=== PATIENT | female | born 1935 | race Caucasian/White ===

== ENCOUNTER 2017-02-14 17:19 | Emergency (ER) | payer OTHER ==
[~2017-02-14 17:19] MED LIST: ADV200 PO; AFRNS; ALENDRONATE SOD70 M2 PO; ALPRAZOLAM0.25 MG PO; AMLODIPINE BES2.5 M1 PO; AMLODIPINE BESYL5 MG PO; ASPIR 8181 MG PO; ATI0.5 PO; CARAFATE1 GM PO; CARVEDILOL12.5 M1 PO; CARVEDILOL12.5 MG PO; CAT0.1 PO; CEPACOL SORE TH1 LO4 MM; CLONIDINE HCL0.1 MG PO; CLONIDINE0.1 M1; COL100 PO; COLACE100 MG PO; COR3; COR3 PO; COR6 PO; CREON1 EC1 PO; DIO80 PO; DIOVAN160 MG PO; DOC-Q-LAX 50 MG1 TAB PO; DONNATAL1 CAP PO; ECO81 PO; ESCITALOPRAM PO; ESG PO; FER300 PO; FIO3 PO; GABAPENTIN100 M2 PO; GEMFIBROZIL600 PO; GUAIFENESIN AN118 ML PO; HYD25 PO; HYDROCHLOROTHIA PO; IBUPROFEN400 MG PO; IBUPROFEN600 MG PO; KEFLEX250 MG PO; LAC PO; LAC30L PO; LEVAQUIN750 MG PO; LIPI10 PO; LIPI20 PO; LOM PO; LOPERAMIDE HCL2 MG PO; MAPAP325 MG PO; MEDDP PO; METFORMIN ER500 M1 PO; METFORMIN500 M1 PO; MICARDIS HCT 251 TAB PO; MUCINEX600 MG PO; NAPROSYN375 MG PO; NITROSTAT0.4 MG SL; NOR5 PO; NORCO1 TA2 PO; OMEPRAZOLE D/R20 MG PO; OMEPRAZOLE DR20 M1 PO; ONDANSETRON4 M3 PO; PRI20 PO; PROTONIX TR40 M1 PO; RANITIDINE HCL150 M1 PO; RANITIDINE150 M1 PO; TESSALON PERLE100 MG PO; TRAMADOL50 MG PO; TRE400 PO; TYLENOL EXTRA500 M2 PO; VITAMIN D1000 I1 PO; VITAMIN D32000 I2 PO; VITC PO; XANAX0.25 MG PO; Z PO; ZES20 PO; ZOC10 PO
[2017-02-14 18:31] LABS: BASOPHIL % 0.7 % (0-2)
[2017-02-14 18:32] LABS: PLATELET COUNT 275 x10^3mcL (130-400); RED CELL DISTRIBUTION WIDTH 15.8 % (11.5-14.5)
[2017-02-14 18:39] LABS: CARBON DIOXIDE 31.4 mmol/L (21-32); CHLORIDE SERUM 96 mmol/L (98-107); CREATININE SERUM 1.8 mg/dL (0.6-1.0); GLUCOSE SERUM 131 mg/dL (74-106); POTASSIUM SERUM 3.9 mmol/L (3.5-5.1); SODIUM SERUM 136 mmol/L (136-145)
[2017-02-14 18:43] LABS: ALBUMIN 3.7 g/dL (3.4-5.0); ALKALINE PHOSPHATASE 116 U/L (46-116); ALT/SGPT 39 U/L (14-59); AMYLASE 69 U/L (25-115); AST/SGOT 39 U/L (15-37); BILIRUBIN TOTAL 0.3 mg/dL (0.20-1.00); LIPASE 131 IU/L (73-393); TOTAL PROTEIN, SERUM 7.8 g/dL (6.4-8.2)
[2017-02-14 20:42] VITALS: BP 146/68
== END 2017-02-14 20:35 | disposition home or self-care (01) ==
LOC: ED 17:19
PROVIDERS: Emergency Medicine
DX: R10.9 Unspecified abdominal pain (principal); E78.00 Pure hypercholesterolemia, unspecified; G43.909 Migraine, unspecified, not intractable, without status migrainosus; I10 Essential (primary) hypertension; E11.9 Type 2 diabetes mellitus without complications
CPT/HCPCS: 83880; J2405; J3490; Q0092

== ENCOUNTER 2017-03-18 00:43 | Emergency (ER) | payer OTHER ==
[2017-03-18 01:53] LABS: PLATELET COUNT 342 x10^3mcL (130-400)
[2017-03-18 01:54] LABS: BASOPHIL % 3.1 % (0-2); RED CELL DISTRIBUTION WIDTH 15.1 % (11.5-14.5)
[2017-03-18 02:05] LABS: CALCIUM 8.5 mg/dL (8.5-10.1); CARBON DIOXIDE 27.1 mmol/L (21-32); CHLORIDE SERUM 93 mmol/L (98-107); CREATININE SERUM 1.8 mg/dL (0.6-1.0); GLUCOSE SERUM 102 mg/dL (74-106); POTASSIUM SERUM 3.5 mmol/L (3.5-5.1); SODIUM SERUM 135 mmol/L (136-145)
[2017-03-18 02:09] LABS: ALBUMIN 3.8 g/dL (3.4-5.0); ALKALINE PHOSPHATASE 90 U/L (46-116); ALT/SGPT 21 U/L (14-59); AST/SGOT 30 U/L (15-37); BILIRUBIN TOTAL 0.51 mg/dL (0.20-1.00); LIPASE 188 IU/L (73-393); TOTAL PROTEIN, SERUM 7.6 g/dL (6.4-8.2)
[2017-03-18 03:16] LABS: microscopic required? YES; urine erythrocyte 1+ (NEGATIVE)
[2017-03-18 04:24] VITALS: BP 165/78
== END 2017-03-18 04:24 | disposition home or self-care (01) ==
LOC: ED 00:43
PROVIDERS: Emergency Medicine
DX: R11.2 Nausea with vomiting, unspecified (principal); R19.7 Diarrhea, unspecified; Z79.84 Long term (current) use of oral hypoglycemic drugs; N28.9 Disorder of kidney and ureter, unspecified; E86.0 Dehydration; K21.9 Gastro-esophageal reflux disease without esophagitis; I25.10 Atherosclerotic heart disease of native coronary artery without angina pectoris; E11.9 Type 2 diabetes mellitus without complications; I10 Essential (primary) hypertension; G43.909 Migraine, unspecified, not intractable, without status migrainosus; E78.5 Hyperlipidemia, unspecified; K42.9 Umbilical hernia without obstruction or gangrene; Z87.11 Personal history of peptic ulcer disease
CPT/HCPCS: 83880; C9113; J2405; J7030; Q0092

== ENCOUNTER 2017-04-27 15:10 | Emergency (ER) | payer OTHER ==
[2017-04-27 15:46] LABS: BASOPHIL % 0.4 % (0-2); PLATELET COUNT 361 x10^3mcL (130-400)
[2017-04-27 15:51] LABS: CALCIUM 8.5 mg/dL (8.5-10.1); CARBON DIOXIDE 29.6 mmol/L (21-32); CHLORIDE SERUM 100 mmol/L (98-107); CREATININE SERUM 1.5 mg/dL (0.6-1.0); GLUCOSE SERUM 136 mg/dL (74-106); POTASSIUM SERUM 3.6 mmol/L (3.5-5.1); SODIUM SERUM 139 mmol/L (136-145)
[2017-04-27 15:55] LABS: ALBUMIN 3.6 g/dL (3.4-5.0); ALKALINE PHOSPHATASE 105 U/L (46-116); ALT/SGPT 26 U/L (14-59); AMYLASE 81 U/L (25-115); AST/SGOT 34 U/L (15-37); BILIRUBIN TOTAL 0.4 mg/dL (0.20-1.00); LIPASE 180 IU/L (73-393); TOTAL PROTEIN, SERUM 7.8 g/dL (6.4-8.2)
[2017-04-27 20:22] VITALS: BP 160/74
== END 2017-04-27 20:22 | disposition home or self-care (01) ==
LOC: ED 15:10
DX: E86.0 Dehydration (principal); I10 Essential (primary) hypertension; E11.9 Type 2 diabetes mellitus without complications; F99 Mental disorder, not otherwise specified; F41.9 Anxiety disorder, unspecified; E78.00 Pure hypercholesterolemia, unspecified; I25.2 Old myocardial infarction; G43.909 Migraine, unspecified, not intractable, without status migrainosus; N17.9 Acute kidney failure, unspecified; R19.7 Diarrhea, unspecified; R11.10 Vomiting, unspecified; Z79.899 Other long term (current) drug therapy; Z79.84 Long term (current) use of oral hypoglycemic drugs; Z88.1 Allergy status to other antibiotic agents; Z79.82 Long term (current) use of aspirin
CPT/HCPCS: 83880; J2405; J7030; J7040

== ENCOUNTER 2017-09-18 21:37 | Inpatient (IN) | payer OTHER ==
[~2017-09-18] VITALS: Ht 152.4 cm; Wt 65.0 kg
[2017-09-18 22:16] VITALS: Ht 152.4 cm; Wt 65.0 kg
[2017-09-18 23:33] LABS: BASOPHIL % 0.6 % (0-2); PLATELET COUNT 284 x10^3mcL (130-400); RED CELL DISTRIBUTION WIDTH 13.4 % (11.5-14.5)
[2017-09-18 23:48] LABS: ALKALINE PHOSPHATASE 86 U/L (46-116); ALT/SGPT 24 U/L (14-59); AMYLASE 64 U/L (25-115); AST/SGOT 22 U/L (15-37); BILIRUBIN TOTAL 0.2 mg/dL (0.20-1.00); CALCIUM 8.6 mg/dL (8.5-10.1); CARBON DIOXIDE 32.3 mmol/L (21-32); CHLORIDE SERUM 96 mmol/L (98-107); GLUCOSE SERUM 115 mg/dL (74-106); LIPASE 133 IU/L (73-393); POTASSIUM SERUM 3.7 mmol/L (3.5-5.1); SODIUM SERUM 135 mmol/L (136-145); TOTAL PROTEIN, SERUM 6.8 g/dL (6.4-8.2)
[2017-09-18 23:51] LABS: ALBUMIN 3.1 g/dL (3.4-5.0)
[2017-09-19] VITALS (7 sets, daily range): BP systolic 169–196; BP diastolic 56–70
[2017-09-19 01:23] LABS: microscopic required? YES; urine erythrocyte 1+ (NEGATIVE)
[2017-09-19] MEDS ORDERED: DIOVAN320 MG (02:22)
[2017-09-19] MEDS ORDERED: GOOD NEIGHBOR P20 M2 (02:23)
[2017-09-19] MEDS ORDERED: LASIX20 MG (02:23)
[2017-09-19] MEDS ORDERED: LAC (02:23)
[2017-09-19] MEDS ORDERED: GOOD SENSE OMEP20 MG (02:23)
[2017-09-19 06:54] LABS: T3 TOTAL 0.96 ng/mL
[2017-09-19 06:57] LABS: HDL CHOLESTEROL 44 mg/dL (40-60); MAGNESIUM 1.7 mg/dL (1.8-2.4); PHOSPHOROUS 4.4 mg/dL (2.5-4.9)
[2017-09-19 06:59] LABS: FREE T4 1.35 ng/dL (0.76-1.46); FREE THYROXINE INDEX 3.2 ug/dL (1.4-4.5); T4(THYROXINE) 7.9 ug/dL (4.7-13.3)
[2017-09-19 07:00] LABS: TRIGLYCERIDES 550 mg/dL (<150)
[2017-09-19 07:41] LABS: CHOLESTEROL 249 mg/dL (<200); CHOLESTEROL/HDL RATIO 5.7
[2017-09-19 07:42] LABS: BASOPHIL % 0.7 % (0-2); PLATELET COUNT 256 x10^3mcL (130-400); RED CELL DISTRIBUTION WIDTH 13.6 % (11.5-14.5)
[2017-09-19 08:08] LABS: CALCIUM 8.3 mg/dL (8.5-10.1); CARBON DIOXIDE 29.1 mmol/L (21-32); CHLORIDE SERUM 99 mmol/L (98-107); CREATININE SERUM 1.9 mg/dL (0.6-1.0); GLUCOSE SERUM 107 mg/dL (74-106); MAGNESIUM 1.5 mg/dL (1.8-2.4); PHOSPHOROUS 4.7 mg/dL (2.5-4.9); POTASSIUM SERUM 3.4 mmol/L (3.5-5.1); SODIUM SERUM 138 mmol/L (136-145)
[2017-09-20] VITALS (7 sets, daily range): BP systolic 145–191; BP diastolic 48–78
[2017-09-20 06:25] LABS: BASOPHIL % 0.8 % (0-2); PLATELET COUNT 254 x10^3mcL (130-400); RED CELL DISTRIBUTION WIDTH 13.4 % (11.5-14.5)
[2017-09-20 06:54] LABS: CALCIUM 8.6 mg/dL (8.5-10.1); CARBON DIOXIDE 28.4 mmol/L (21-32); CHLORIDE SERUM 104 mmol/L (98-107); CREATININE SERUM 1.5 mg/dL (0.6-1.0); GLUCOSE SERUM 126 mg/dL (74-106); PHOSPHOROUS 3.8 mg/dL (2.5-4.9); POTASSIUM SERUM 3.7 mmol/L (3.5-5.1); SODIUM SERUM 140 mmol/L (136-145)
[2017-09-21 05:53] VITALS: BP 133/67
[2017-09-21 09:10] VITALS: BP 133/67
[2017-09-21 09:49] VITALS: BP 141/68; BP 194/70
[2017-09-21] MEDS ORDERED: CLONIDINE HYDR0.3 M1 PO (10:21)
[2017-09-21] MEDS ORDERED: CARVEDILOL25 M1 PO (10:22)
[2017-09-21] MEDS ORDERED: LASIX20 MG PO (10:23)
[2017-09-21] MEDS ORDERED: GOOD NEIGHBOR P20 M2 PO (10:24)
[2017-09-21] MEDS ORDERED: LIPI10 PO (10:24)
[2017-09-21] MEDS ORDERED: I5 PO (10:25)
[2017-09-21 11:15] LABS: BASOPHIL % 0.4 % (0-2); PLATELET COUNT 236 x10^3mcL (130-400); RED CELL DISTRIBUTION WIDTH 13.1 % (11.5-14.5)
[2017-09-21 11:31] LABS: CALCIUM 8.3 mg/dL (8.5-10.1); CARBON DIOXIDE 30.1 mmol/L (21-32); CHLORIDE SERUM 103 mmol/L (98-107); CREATININE SERUM 1.5 mg/dL (0.6-1.0); GLUCOSE SERUM 144 mg/dL (74-106); MAGNESIUM 2.1 mg/dL (1.8-2.4); POTASSIUM SERUM 3.5 mmol/L (3.5-5.1); SODIUM SERUM 141 mmol/L (136-145)
== END 2017-09-21 13:40 | disposition home or self-care (01) | DRG 391 ==
LOC: ED 21:37 → DU 09-19 01:54 → MU 09-19 01:54 → DU 09-19 03:21 → MU 09-20 09:41
PROVIDERS: Emergency Medicine; Family Medicine
DX: K21.9 Gastro-esophageal reflux disease without esophagitis (principal); N17.0 Acute kidney failure with tubular necrosis; E87.1 Hypo-osmolality and hyponatremia; E44.0 Moderate protein-calorie malnutrition; K26.9 Duodenal ulcer, unspecified as acute or chronic, without hemorrhage or perforation; I12.9 Hypertensive chronic kidney disease with stage 1 through stage 4 chronic kidney disease, or unspecified chronic kidney disease; E11.22 Type 2 diabetes mellitus with diabetic chronic kidney disease; N18.9 Chronic kidney disease, unspecified; R31.29 Other microscopic hematuria; I16.0 Hypertensive urgency; E11.51 Type 2 diabetes mellitus with diabetic peripheral angiopathy without gangrene; E11.42 Type 2 diabetes mellitus with diabetic polyneuropathy; D63.8 Anemia in other chronic diseases classified elsewhere; E78.5 Hyperlipidemia, unspecified; Z68.28 Body mass index [BMI] 28.0-28.9, adult; Z79.84 Long term (current) use of oral hypoglycemic drugs
CPT/HCPCS: 82962; 83880; 84439; J3475; J3490; J7030; J7050; Q0092

== ENCOUNTER 2018-02-14 11:20 | Emergency (ER) | payer OTHER ==
[~2018-02-14] VITALS: Ht 149.9 cm; Wt 59.1 kg
[~2018-02-14 11:20] MED LIST changes: +CARVEDILOL25 M1 PO; +CLONIDINE HYDR0.3 M1 PO; +DIOVAN320 MG; +GOOD NEIGHBOR P20 M2; +GOOD NEIGHBOR P20 M2 PO; +GOOD SENSE OMEP20 MG; +I5 PO; +LAC; +LASIX20 MG; +LASIX20 MG PO
[2018-02-14 11:27] VITALS: BP 162/80; Ht 149.9 cm; Wt 59.1 kg
[2018-02-14] MEDS ORDERED: CARAFATE1 GM PO (11:35)
[2018-02-14] MEDS ORDERED: FUROSEMIDE20 MG PO (11:35)
[2018-02-14] MEDS ORDERED: CARVEDILOL6.25 M1 PO (11:36)
[2018-02-14] MEDS ORDERED: NOR10 PO (11:36)
[2018-02-14] MEDS ORDERED: CATAPRES0.1 MG PO (11:36)
[2018-02-14] MEDS ORDERED: ASPIR 8181 MG PO (11:36)
[2018-02-14] MEDS ORDERED: TOPCARE LAXATIVE5 MG PO (11:37)
[2018-02-14] MEDS ORDERED: DRISDOL50000 IU PO (11:38)
[2018-02-14] MEDS ORDERED: ZANTAC 150150 MG PO (11:38)
[2018-02-14] MEDS ORDERED: GABAPENTIN100 M2 PO (11:39)
[2018-02-14] MEDS ORDERED: APAP500 MG PO (11:39)
[2018-02-14] MEDS ORDERED: LOVASTATIN20 MG PO (11:39)
[2018-02-14] MEDS ORDERED: METFORMIN HCL500 MG PO (11:40)
[2018-02-14] MEDS ORDERED: FERROUS SULFAT325 M2 PO (11:40)
[2018-02-14] MEDS ORDERED: VITAMIN B121000 MCG PO (11:40)
[2018-02-14] MEDS ORDERED: DIOVAN320 MG PO (11:40)
== END 2018-02-14 13:04 | disposition home or self-care (01) ==
LOC: ED 11:20
DX: J18.0 Bronchopneumonia, unspecified organism (principal); I10 Essential (primary) hypertension; E78.00 Pure hypercholesterolemia, unspecified; E11.9 Type 2 diabetes mellitus without complications; G43.909 Migraine, unspecified, not intractable, without status migrainosus

== ENCOUNTER 2018-12-22 00:01 | Emergency (ER) | payer OTHER ==
[~2018-12-22] VITALS: Ht 152.4 cm; Wt 56.2 kg
[~2018-12-22 00:01] MED LIST changes: +APAP500 MG PO; +CARVEDILOL6.25 M1 PO; +CATAPRES0.1 MG PO; +DIOVAN320 MG PO; +DRISDOL50000 IU PO; +FERROUS SULFAT325 M2 PO; +FUROSEMIDE20 MG PO; +LOVASTATIN20 MG PO; +METFORMIN HCL500 MG PO; +NOR10 PO; +TOPCARE LAXATIVE5 MG PO; +VITAMIN B121000 MCG PO; +ZANTAC 150150 MG PO
[2018-12-22 00:05] VITALS: Ht 152.4 cm; Wt 56.2 kg
[2018-12-22 02:12] VITALS: BP 175/74
== END 2018-12-22 02:12 | disposition home or self-care (01) ==
LOC: ED 00:01
DX: J18.0 Bronchopneumonia, unspecified organism (principal); I10 Essential (primary) hypertension; E11.9 Type 2 diabetes mellitus without complications; F41.9 Anxiety disorder, unspecified; E78.00 Pure hypercholesterolemia, unspecified; G43.909 Migraine, unspecified, not intractable, without status migrainosus; Z98.890 Other specified postprocedural states
CPT/HCPCS: J0696

== ENCOUNTER 2018-12-26 16:46 | Inpatient (IN) | payer OTHER ==
[~2018-12-26] VITALS: Ht 152.4 cm; Wt 56.7 kg
[2018-12-26 16:52] VITALS: Ht 152.4 cm; Wt 56.7 kg
[2018-12-26 18:28] LABS: BASOPHIL % 0.4 % (0-2); PLATELET COUNT 378 x10^3mcL (130-400); RED CELL DISTRIBUTION WIDTH 13.2 % (11.5-14.5)
[2018-12-26 18:38] LABS: CALCIUM 8.8 mg/dL (8.5-10.1); CARBON DIOXIDE 28.4 mmol/L (21-32); CHLORIDE SERUM 94 mmol/L (98-107); CREATININE SERUM 1.8 mg/dL (0.6-1.0); GLUCOSE SERUM 145 mg/dL (74-106); POTASSIUM SERUM 3.5 mmol/L (3.5-5.1); SODIUM SERUM 129 mmol/L (136-145)
[2018-12-26 18:43] LABS: ALBUMIN 3.3 g/dL (3.4-5.0); ALKALINE PHOSPHATASE 70 U/L (46-116); ALT/SGPT 23 U/L (14-59); AST/SGOT 30 U/L (15-37); TOTAL PROTEIN, SERUM 7.5 g/dL (6.4-8.2)
[2018-12-26 23:56] VITALS: BP 152/60
[2018-12-27 00:08] LABS: CHOLESTEROL/HDL RATIO 3.9; PHOSPHOROUS 3.9 mg/dL (2.5-4.9)
[2018-12-27 00:16] LABS: FREE T4 1.01 ng/dL (0.76-1.46); FREE THYROXINE INDEX 2.9 ug/dL (1.4-4.5); T4(THYROXINE) 8.5 ug/dL (4.7-13.3)
[2018-12-27 00:46] LABS: T3 TOTAL 0.71 ng/mL
[2018-12-27 04:57] LABS: BASOPHIL % 0.8 % (0-2); PLATELET COUNT 356 x10^3mcL (130-400); RED CELL DISTRIBUTION WIDTH 13.2 % (11.5-14.5)
[2018-12-27 05:02] LABS: CALCIUM 8.5 mg/dL (8.5-10.1); CARBON DIOXIDE 26.8 mmol/L (21-32); CHLORIDE SERUM 98 mmol/L (98-107); CREATININE SERUM 1.7 mg/dL (0.6-1.0); GLUCOSE SERUM 109 mg/dL (74-106); POTASSIUM SERUM 3.5 mmol/L (3.5-5.1); SODIUM SERUM 133 mmol/L (136-145)
[2018-12-27 05:37] VITALS: BP 124/49
[2018-12-27 08:46] VITALS: BP 143/45
[2018-12-27 09:00] LABS: UA SPECIFIC GRAVITY <=1.005 (1.005-1.035); microscopic required? YES
[2018-12-27 09:02] LABS: urine erythrocyte TRACE (NEGATIVE)
[2018-12-27 09:54] LABS: AMPHETAMINE QUAL UR NONE DETECTED (See below)
[2018-12-27 12:43] VITALS: BP 146/53
[2018-12-27 16:52] VITALS: BP 154/45
[2018-12-27 19:16] VITALS: BP 154/45
== END 2018-12-27 20:25 | disposition home or self-care (01) | DRG 205 ==
LOC: ED 16:46 → DU 22:24
PROVIDERS: Emergency Medicine; ADMIT Family Medicine
DX: M94.0 Chondrocostal junction syndrome [Tietze] (principal); N17.0 Acute kidney failure with tubular necrosis; E87.1 Hypo-osmolality and hyponatremia; E44.1 Mild protein-calorie malnutrition; E11.65 Type 2 diabetes mellitus with hyperglycemia; K21.9 Gastro-esophageal reflux disease without esophagitis; I10 Essential (primary) hypertension; F41.9 Anxiety disorder, unspecified; E78.5 Hyperlipidemia, unspecified; I25.2 Old myocardial infarction; Z79.82 Long term (current) use of aspirin; Z79.84 Long term (current) use of oral hypoglycemic drugs
CPT/HCPCS: 78598; 82962; 83880; 84439; 85378; A9540; J2270; J7030; Q0092